=== PATIENT | male | born 1950 | race Caucasian/White ===

== ENCOUNTER 2016-07-03 08:52 | Emergency (ER) | payer BC ==
[~2016-07-03] VITALS: Ht 172.7 cm; Wt 90.0 kg
[2016-07-03] MEDS ORDERED: AMLODIPINE5 MG PO (09:08)
[2016-07-03] MEDS ORDERED: ATORVASTATIN CA40 MG PO (09:09)
[2016-07-03] MEDS ORDERED: OMEPRAZOLE10 MG PO (09:09)
[2016-07-03] MEDS ORDERED: LEXAPRO10 MG PO (09:10)
[2016-07-03] MEDS ORDERED: LOSARTAN POTASS1 TA2 PO (09:15)
[2016-07-03 09:55] VITALS: BP 158/87
[2016-07-03 09:56] LABS: HEMATOCRIT 43.8 % (39.0-50.0); IMMATURE GRANULOCYTES 0.7 % (0.0-1.0); MEAN CELL VOLUME 85.9 fL CALC (80.0-100.0); MEAN CORPUSCULAR HGB 29.4 pG CALC (26.0-32.0); MEAN CORPUSCULAR HGB CONC 34.2 g/L CALC (32.0-36.0); NEUT# 5.58 thou/uL (1.82-7.42); RED BLOOD COUNT 5.1 mill/uL (4.70-6.10); RED CELL DISTRI WIDTH 12.9 % (11.5-15.5)
[2016-07-03 10:22] LABS: INTERNATIONAL NORMALIZED RATIO 0.9 RATIO (0.7-1.3); PROTHROMBIN TIME 9.9 SECONDS (9.0-12.5)
[2016-07-03 10:26] LABS: ALBUMIN 4.5 g/dL (3.2-5.0); ALKALINE PHOSPHATASE 141 u/l (38-126); ANION GAP 17 (6-22 (CALC)); BILIRUBIN, TOTAL 0.5 mg/dL (0.0-1.4); BUN 15 mg/dL (8-23); BUN/CREATININE RATIO 17 (12-20 (CALC)); CARBON DIOXIDE 26 mmol/l (22-30); CHLORIDE 103 mmol/l (95-108); CREATININE 0.9 mg/dL (0.7-1.3); GFR > 60 ML/MIN (>=60 (CALC)); GFR FOR AFR.AMER. > 60 ML/MIN (>=60 (CALC)); GLUCOSE 99 mg/dL (82-115); SGOT/AST 27 u/l (19-48); SGPT/ALT 60 u/l (11-66); SODIUM 142 mmol/l (137-146); TOTAL PROTEIN 7.4 g/dL (6.3-8.2)
== END 2016-07-03 10:01 | disposition home or self-care (01) | DRG 151 ==
LOC: ED 08:52
PROVIDERS: Emergency Medicine
PROC: 2Y41X5Z Packing of Nasal Region using Packing Material (ICD-10-PCS; principal; 2016-07-03)
DX: R04.0 Epistaxis (principal); I10 Essential (primary) hypertension; G47.30 Sleep apnea, unspecified

== ENCOUNTER 2017-07-16 09:12 | Day surgery (SDC) | payer BC ==
[~2017-07-16] VITALS: Ht 172.7 cm; Wt 91.6 kg
[~2017-07-16 09:12] MED LIST: AMLODIPINE5 MG PO; ASPIRIN LOW DOS81 M1 PO; ATORVASTATIN CA40 MG PO; CLARITIN RDT10 MG PO; DIOVAN HC2 PO; FLONASE AL50 MCG/ACT IN; LEXAPRO10 MG PO; LOSARTAN POTASS1 TA2 PO; OMEPRAZOLE10 MG PO; PROZAC20 MG PO
[2017-07-16 12:09] VITALS: BP 142/75
== END 2017-07-16 12:23 | disposition home or self-care (01) | DRG 392 ==
LOC: ENDO 09:12 → ORM 12:00 → ENDO 12:23 → ORM 12:45
PROVIDERS: ATTEND Surgery
PROC: 0DJD8ZZ Inspection of Lower Intestinal Tract, Via Natural or Artificial Opening Endoscopic (ICD-10-PCS; principal; 2017-07-16)
DX: K57.30 Diverticulosis of large intestine without perforation or abscess without bleeding (principal); I10 Essential (primary) hypertension; E78.5 Hyperlipidemia, unspecified; F32.9 Major depressive disorder, single episode, unspecified